=== PATIENT | male | born 1995 | race Caucasian/White ===

== ENCOUNTER 2021-06-10 23:29 | Emergency (ER) | payer OTHER ==
[~2021-06-10] VITALS: Ht 180.3 cm; Wt 151.9 kg
--- OUTSIDE RECORDS SUMMARY | 2021-06-10 23:34 | XMS ---
PreManage Notification: WAYNE TOLEDO Security Technical Maintenance Specialist Events No recent Security Events currently on file CRITERIA MET - PDMP - [facility] Care Guidelines CARE PROVIDERS KEVIN GRISSOM Physician Analytics Associate Current PHONE: [phone] JESE NUÑEZ Community Health Worker 04/03/2020-Current PHONE: [phone] Guidelines Source: [facility] Guidelines Date: 01/31/2021 Care Recommendation: Created On: 07/11/2016 14:05 Archived Care Plan: Board of Pharmacy Report: Date Referred: 10/01/2015 Dates investigated: 2013-11/09/2015 Total number of prescribing providers: 2 Total number of pharmacies:2 Total number of prescriptions:2 Plan of care: 1)No potentially addictive medications for subjective complaints. 2)SW and CM to complete a needs assessment. 3) CC all encounters to Franklin Lockhart. Progress notes: Pt was referred for a care plan due to chronic pain, frequent ED visits and 150 transcriptions in the [place] [employer] date exchange. Pt is seen by Dr. Lockhart for anti depressants and heart medications. Chantelle\T\apos;s office is aware of the Pt\T\apos;s visits to different ED\T\apos;s and urgent care. Pt has had 7 CT scans of the chest, abdomen, pelvis and head since December 2012. Additional care guidelines exist for the following facilities: [facility] ( 05/24/2019 ) Shital VISIT COUNT (12 MO.) [address] Kelechi PattersonToan TOTAL 6 NOTE: Visits indicate total known visits. ED/UCC VISIT TRACKING (12 MO.) 06/10/2021 23:30 [facility] [place] TYPE: Emergency COMPLAINT: - SOB,COUGH,CONGESTION,WEAKNESS 03/03/2021 23:[address] [facility] [place] TYPE: Emergency DIAGNOSES: - POST OP PROBLEM - Other acute postprocedural pain 11/08/2020 20:[address] [facility] [place] TYPE: Emergency DIAGNOSES: - ABD PAIN - Right upper quadrant pain 11/07/2020 [facility] COMPLAINT: - DIAHRREA, VOMITTING, ABD PAIN DIAGNOSES: - DIAHRREA, VOMITTING, ABD PAIN 11/03/2020 22:21 [facility] [place] TYPE: Emergency DIAGNOSES: - Calculus of bile duct without cholangitis or cholecystitis without obstruction - R FLANK PAIN AND VOMITING - Hyperglycemia, unspecified 07/01/2020 11:25 [facility] [place] TYPE: Emergency DIAGNOSES: - pelvic pain - Pain in right hip - Pain in left hip INPATIENT VISIT TRACKING (12 MO.) No inpatient visits to display in this time frame [id number]
[2021-06-10] MEDS ORDERED: METFORMIN HCL500 MG PO (23:48)
== END 2021-06-11 00:22 | disposition home or self-care (01) ==
LOC: ED 23:29
DX: J20.9 Acute bronchitis, unspecified (principal); Z20.822 Contact with and (suspected) exposure to COVID-19; E11.9 Type 2 diabetes mellitus without complications; E66.9 Obesity, unspecified; F17.200 Nicotine dependence, unspecified, uncomplicated; J45.909 Unspecified asthma, uncomplicated; Z79.84 Long term (current) use of oral hypoglycemic drugs
CPT/HCPCS: 71045; 99283-25; C9803; U0003

== ENCOUNTER 2023-02-25 20:08 | Emergency (ER) | payer OTHER ==
[~2023-02-25] VITALS: Ht 180.3 cm; Wt 132.4 kg
[~2023-02-25 20:08] MED LIST: METFORMIN HCL500 MG PO
--- OUTSIDE RECORDS SUMMARY | 2023-02-25 20:10 | XMS ---
PreManage Notification: WAYNE TOLEDO Security Hvac Mechanic Events No recent Security Events currently on file CRITERIA MET - [facility] - 2 Visits in 30 Days CARE PROVIDERS -Сергей- Dentist: Grain Cleaner And Transfer Operator [facility] PHONE: [phone] JESE NUÑEZ Community Health Worker 04/03/2020-Current PHONE: [phone] JESUS MANUEL BENNETT Physician Chief Dog License Inspector Current PHONE: Unknown Care Guidelines exist for the following facilities: [facility] ( 05/24/2019 ) Shital VISIT COUNT (12 MO.) 9 [facility] 1 MICK Almaguer TOTAL 10 NOTE: Visits indicate total known visits. ED/UCC VISIT TRACKING (12 MO.) 02/25/2023 20:09 [facility] [place] TYPE: Emergency COMPLAINT: - MIGRAINE 02/21/2023 16:36 [email or web address] [place] TYPE: Emergency DIAGNOSES: - LEFT WRIST PAIN - Unspecified sprain of left wrist, initial encounter 10/30/2022 14:54 [facility] [place] TYPE: Emergency DIAGNOSES: - POSS SYNCOPE - Syncope and collapse 10/08/2022 16:05 [facility] [place] TYPE: Emergency DIAGNOSES: - FLU LIKE SYMPTOMS - Influenza due to other identified influenza virus with other respiratory manifestations 08/01/2022 13:39 [facility] [place] TYPE: Emergency DIAGNOSES: - Nausea with vomiting, unspecified - abd pain - Diarrhea, unspecified 07/16/2022 13:29 [facility] [place] TYPE: Emergency DIAGNOSES: - Pain in right knee - wound check 07/13/2022 19:43 [facility] [place] TYPE: Emergency DIAGNOSES: - LEG INJURY - Contusion of right lower leg, initial encounter 06/06/2022 21:13 [facility] DIAGNOSES: - ABDOMINAL PAIN BLOOD IN [place] - Periumbilical pain 05/29/2022 20:50 [facility] [place] TYPE: Emergency DIAGNOSES: - COVID-19 - fever 03/26/2022 13:20 [facility] [place] TYPE: Emergency DIAGNOSES: - CHEST PAIN DIZZINESS - Chest pain, unspecified INPATIENT VISIT TRACKING (12 MO.) No inpatient visits to display in this time frame [email or web address]
[2023-02-25] MEDS ORDERED: TOPIRAMATE50 MG PO (20:53)
[2023-02-25] MEDS ORDERED: RIZATRIPTAN10 MG PO (20:53)
[2023-02-25] MEDS ORDERED: OMEPRAZOLE20 MG PO (20:54)
[2023-02-25] MEDS ORDERED: HYDROCHLOROTH12.5 MG PO (20:54)
[2023-02-25] MEDS ORDERED: JARDIANCE10 MG PO (20:54)
[2023-02-25] MEDS ORDERED: VENTOLIN HFA18 GM INH (20:55)
[2023-02-25] MEDS ORDERED: BUTALB-ACETAMI1 EAC2 PO (22:22)
== END 2023-02-25 23:20 | disposition home or self-care (01) ==
LOC: ED 20:08
DX: G43.909 Migraine, unspecified, not intractable, without status migrainosus (principal); J45.909 Unspecified asthma, uncomplicated; E11.9 Type 2 diabetes mellitus without complications; F17.200 Nicotine dependence, unspecified, uncomplicated; E66.9 Obesity, unspecified; Z68.41 Body mass index [BMI] 40.0-44.9, adult; Z79.899 Other long term (current) drug therapy
CPT/HCPCS: J1200; J1885; J2765; J3030; J7121

== ENCOUNTER 2023-08-25 00:05 | Emergency (ER) | payer OTHER ==
[~2023-08-25] VITALS: Ht 180.3 cm; Wt 128.0 kg
--- OUTSIDE RECORDS SUMMARY | ~2023-08-25 | XMS | Continuity of Care Document ---
Demographics + + + | Address | [address] | | | [place] [address] | + + + | Preferred Language | Unknown | + + + | Marital Status | | + + + | Gnosticist Affiliation | Unknown | + + + | Race | White | + + + | Ethnic Group | Unknown | + + + Author + + + | Author | [facility] | + + + | Organization | [facility] | + + + | Address | [address] | | | [place] [address] | + + + | Phone | | + + + Care Team Providers + + + + | Care Chronic Manager Name | Role | Phone | + + + + Unavailable | Unavailable | + + + + Allergies No information. Encounters No information. Functional Status No information. Immunizations No information. Medications No information. Problems + + + + | date | description | facility | + + + + | 2023-06-05 13:05:56 | Chronic migraine without | [facility] | | | aura, intractable, without [facility] | | | status migrainosus | | + + + + | 2023-06-05 13:05:56 | Concussion without loss of | [facility] | | | consciousness, initial | [facility] | | | encounter | | + + + + | 2023-07-17 14:06:32 | Chronic migraine without | [facility] | | | aura, intractable, without | [facility] | | | status migrainosus | | + + + + | 2023-08-07 13:02:26 | Chronic migraine without | [facility] | | | aura, intractable, without | [facility] | | | status migrainosus | | + + + + | 2023-08-07 13:02:26 | Chronic tension-type | [facility] | | | headache, intractable | [facility] | + + + + Procedures No information. Results/Labs No information. Social History +--------+ + + | date | description | facility | +--------+ + + Vital Signs No information."
[~2023-08-25 00:05] MED LIST changes: +BUTALB-ACETAMI1 EAC2 PO; +HYDROCHLOROTH12.5 MG PO; +JARDIANCE10 MG PO; +OMEPRAZOLE20 MG PO; +RIZATRIPTAN10 MG PO; +TOPIRAMATE50 MG PO; +VENTOLIN HFA18 GM INH
--- OUTSIDE RECORDS SUMMARY | 2023-08-25 00:08 | XMS ---
PreManage Notification: WAYNE TOLEDO Security Art Librarian Events No recent Security Events currently on file CRITERIA MET - PDM - [facility] - 2 Visits in 30 Days CARE PROVIDERS JESE NUÑEZ Community Health Worker 04/03/2020-Current PHONE: [phone] -, Сергей- Dentist: Software Sales Manager Current [facility] PHONE: [phone] JESUS MANUEL BENNETT Physician Preventive Medicine Specialist Current PHONE: Unknown Care Guidelines exist for the following facilities: [facility] ( 01/31/2021 ) [facility] ( 05/24/2019 ) Shital VISIT COUNT (12 MO.) 5 [facility] [address] [facility] [address] Kelechi Reyes TOTAL 7 NOTE: Visits indicate total known visits. ED/UCC VISIT TRACKING (12 MO.) 08/25/2023 00:06 [facility] [place] TYPE: Emergency COMPLAINT: - ABDOMINAL PAIN 08/02/2023 11:56 [facility] [place] TYPE: Emergency DIAGNOSES: - Infectious gastroenteritis and colitis, unspecified - Type 2 diabetes mellitus with hyperglycemia - SEVERE ABD PAIN RIGHT SIDE NAUSEA DIARRHEA 05/08/2023 13:02 [facility] [place] TYPE: Emergency DIAGNOSES: - Acute upper respiratory infection, unspecified - Panic disorder [episodic paroxysmal anxiety] - CHEST PAIN DIFFICULTY BREATHING 02/25/2023 20:09 [facility] [place] TYPE: Emergency COMPLAINT: - MIGRAINE DIAGNOSES: - Body mass index [BMI] 40.0-44.9, adult - Migraine, unspecified, not intractable, without status migrainosus - Nicotine dependence, unspecified, uncomplicated - Obesity, unspecified - Other termite control service representative (current) drug therapy - Type 2 diabetes mellitus without complications - Unspecified asthma, uncomplicated 02/21/2023 16:36 [facility] [place] TYPE: Emergency DIAGNOSES: - Unspecified sprain of left wrist, initial encounter - LEFT WRIST PAIN 10/30/2022 14:54 [facility] [place] TYPE: Emergency DIAGNOSES: - Syncope and collapse - POSS SYNCOPE 10/08/2022 16:05 [facility] [place] TYPE: Emergency DIAGNOSES: - Influenza due to other identified influenza virus with other respiratory manifestations - FLU LIKE SYMPTOMS INPATIENT VISIT TRACKING (12 MO.) No inpatient visits to display in this time frame [id number]
[2023-08-25] MEDS ORDERED: UBRELVY50 MG PO (00:19)
[2023-08-25 00:39] LABS: BASOPHILS 0.9 % (0-2); EOSINOPHILS 2.4 % (0-6); HEMATOCRIT 49.4 % (35.0-50.0); HEMOGLOBIN 16.8 g/dL (12.0-18.0); LYMPHOCYTES 25.3 % (24-44); MCH 30.4 (27-36); MCHC 34.1 g/dl (30-36); MCV 89.1 fl (81-99); MONOCYTES 6.9 % (0-12); NEUTROPHILS 64.5 % (39-80); PLATELET COUNT 258 K/uL (140-440); RBC 5.54 M/ul (4.3-5.7); RDW 13.8 (10.5-15.0)
[2023-08-25 01:01] LABS: ALBUMIN 3.7 g/dL (3.4-5.0); ALBUMIN/GLOBULIN RATIO 0.95 (1.1-2.4); ANION GAP 17.5 (7-21); BILIRUBIN, TOTAL 0.2 ng/dL (0.2-1.0); CALCIUM 9.2 mg/dL (8.5-10.1); CREATININE, SERUM 1.23 mg/dL (0.70-1.30); POTASSIUM 3.5 mmol/L (3.5-5.1); PROTEIN, TOTAL 7.6 g/dL (6.4-8.2)
[2023-08-25 01:28] LABS: BILIRUBIN, URINE NEGATIVE (negative); BLOOD/HGB, URINE NEGATIVE (Negative); KETONE, URINE TRACE (Negative); LEUK ESTERASE, URINE NEGATIVE (negative); NITRITE, URINE NEGATIVE (negative)
[2023-08-25] MEDS ORDERED: QUESTRAN PACKET4 GM PO (01:45)
[2023-08-25] MEDS ORDERED: ANUSOL-HC30 GM PR (01:45)
[2023-08-25] MEDS ORDERED: ONDANSETRON ODT8 MG PO (01:45)
[2023-08-25] MEDS ORDERED: TRAMADOL HCL50 MG PO (01:45)
[2023-08-25] MEDS ORDERED: VANCOCIN HCL125 MG PO (01:45)
[2023-08-25 02:16] VITALS: BP 138/94
[2023-08-28 02:38] LABS: C. DIFF TOXIN B GENE TCDB,PCR Not Detected (())
== END 2023-08-25 02:15 | disposition home or self-care (01) ==
LOC: ED 00:05
PROVIDERS: Family Medicine
DX: K52.9 Noninfective gastroenteritis and colitis, unspecified (principal); J45.909 Unspecified asthma, uncomplicated; E11.9 Type 2 diabetes mellitus without complications; F17.200 Nicotine dependence, unspecified, uncomplicated; E66.9 Obesity, unspecified; Z68.39 Body mass index [BMI] 39.0-39.9, adult; Z79.899 Other long term (current) drug therapy
CPT/HCPCS: 36415; 80053; 81003; 83690; 85025; 87045; 87046; 87493; 96374; 96375; 96376; 99284-25; A9270; J2270; J2405; J7030

== ENCOUNTER 2024-06-18 00:45 | Emergency (ER) | payer OTHER ==
[~2024-06-18] VITALS: Ht 180.3 cm; Wt 121.2 kg
[~2024-06-18 00:45] MED LIST changes: +ANUSOL-HC30 GM PR; +ONDANSETRON ODT8 MG PO; +QUESTRAN PACKET4 GM PO; +TRAMADOL HCL50 MG PO; +UBRELVY50 MG PO; +VANCOCIN HCL125 MG PO
--- OUTSIDE RECORDS SUMMARY | 2024-06-18 00:47 | XMS ---
PreManage Notification: WAYNE TOLEDO Security Barrel Charrer Helper Events No recent Security Events currently on file CRITERIA MET - 6 ED Visits in 6 Months - [facility] - [facility] - 2 Visits in 30 Days CARE PROVIDERS Marva Hearn Community Health Worker 12/08/2023-Current PHONE: [phone] -[facility]+ Dentist: Pneumatic Tube Repairer [facility] PHONE: [phone] -Сергей- Dentist: Pneumatic Tube Repairer [facility] PHONE: [phone] JESUS MANUEL BENNETT Physician Setter Automatic Spinning Lathe Current PHONE: Unknown [facility]: [facility] Current WORKERS CLINIC \[facility] (FQ) [facility] PHONE: [phone] Care Guidelines exist for the following facilities: [facility] ( 01/31/2021 ) [employer] ( 04/28/2017 ) Shital VISIT COUNT (12 MO.) 11 [facility] 2 M[facility] Almag[facility] TOTAL 13 NOTE: Visits indicate total known visits. ED/UCC VISIT TRACKING (12 MO.) 06/18/2024 00:46 [facility] [place] TYPE: Emergency COMPLAINT: - ABD PAIN 06/16/2024 21:00 [facility] Emergency DIAGNOSES: - Pain in right knee - KNEE INJURY 06/15/2024 11:27 [facility] [place] TYPE: Emergency DIAGNOSES: - Nausea with vomiting, unspecified - ABD PAIN DIARRHEA 04/11/2024 19:19 [facility] [place] TYPE: Emergency DIAGNOSES: - Other lesions of oral mucosa - allergic reaction 03/26/2024 16:29 [facility] [place] TYPE: Emergency DIAGNOSES: - Lumbago with sciatica, right side - Other chronic pain - Other intervertebral disc displacement, lumbar region - Radiculopathy, thoracolumbar region - BACK PAIN 02/16/2024 16:29 [facility] [place] TYPE: Emergency DIAGNOSES: - Low back pain, unspecified - BACK INJURY 02/02/2024 20:46 [facility] [place] TYPE: Emergency DIAGNOSES: - Rash and other nonspecific skin eruption - ALLERGIC REACTION 01/26/2024 02:00 [facility] [place] TYPE: Emergency DIAGNOSES: - Radiculopathy, lumbar region - BACK PAIN 01/18/2024 10:13 [facility] [place] TYPE: Emergency DIAGNOSES: - Radiculopathy, lumbar region - Strain of muscle, fascia and tendon of lower back, initial encounter - BACK PAIN - BACK PAIN WEAKNESS 12/03/2023 21:06 [facility] DIAGNOSES: - Acute pharyngitis, unspecified - Sore Throat, Bodyaches 10/29/2023 17:40 [facility] [place] TYPE: Emergency DIAGNOSES: - Chest pain, unspecified - Other chest pain - chest pain 08/25/2023 00:06 [facility] [place] TYPE: Emergency COMPLAINT: - ABDOMINAL PAIN DIAGNOSES: - Body mass index [BMI] 39.0-39.9, adult - Lower abdominal pain, unspecified - Nicotine dependence, unspecified, uncomplicated - Noninfective gastroenteritis and colitis, unspecified - Obesity, unspecified - Other long-term (current) drug therapy - Type 2 diabetes mellitus without complications - Unspecified asthma, uncomplicated 08/02/2023 11:56 [facility] [place] TYPE: Emergency DIAGNOSES: - Infectious gastroenteritis and colitis, unspecified - Type 2 diabetes mellitus with hyperglycemia - SEVERE ABD PAIN RIGHT SIDE NAUSEA DIARRHEA INPATIENT VISIT TRACKING (12 MO.) No inpatient visits to display in this time frame [email or web address]
[2024-06-18] MEDS ORDERED: KETOROLAC TROMETHAMINE 30 MG/ML VIAL IV ONE (01:00)
[2024-06-18] MEDS ORDERED: SODIUM CHLORIDE 0.9% 1,000 ML IV ONE (01:00)
[2024-06-18] MEDS ORDERED: DIPHENOXYLATE/ATROPINE 1 EA TAB PO ONE (01:00)
[2024-06-18] MEDS ORDERED: ondansetron HCL 4 MG/2 ML VIAL IV ONE (01:00)
[2024-06-18 01:08] LABS: BASOPHILS 0.3 % (0-2); EOSINOPHILS 4.2 % (0-6); HEMATOCRIT 46.5 % (35.0-50.0); HEMOGLOBIN 16.2 g/dL (12.0-18.0); LYMPHOCYTES 24.8 % (24-44); MCH 30.9 (27-36); MCHC 34.8 g/dl (30-36); MCV 88.8 fl (81-99); NEUTROPHILS 64.7 % (39-80); PLATELET COUNT 224 K/uL (140-440); RBC 5.23 M/ul (4.3-5.7); RDW 13.9 (10.5-15.0)
[2024-06-18] MEDS ORDERED: TRULICITY0.75 MG/0. SUB-Q (01:09)
[2024-06-18] MEDS ORDERED: PRAZOSIN HCL2 MG PO (01:10)
[2024-06-18 01:23] LABS: ALBUMIN 3.7 g/dL (3.4-5.0); ALBUMIN/GLOBULIN RATIO 1.03 (1.1-2.4); ANION GAP 14.4 (7-21); BILIRUBIN, TOTAL 0.2 ng/dL (0.2-1.0); BUN/CREATININE RATIO 18.01 (6.0-28.6); CREATININE, SERUM 1.11 mg/dL (0.70-1.30); POTASSIUM 3.4 mmol/L (3.5-5.1); PROTEIN, TOTAL 7.3 g/dL (6.4-8.2)
[2024-06-18 01:28] LABS: BILIRUBIN, URINE NEGATIVE (negative); BLOOD/HGB, URINE NEGATIVE (Negative); KETONE, URINE NEGATIVE (Negative); LEUK ESTERASE, URINE NEGATIVE (negative); NITRITE, URINE NEGATIVE (negative)
[2024-06-18] MEDS ORDERED: ONDANSETRON ODT8 MG PO (01:36)
[2024-06-18] MEDS ORDERED: DICYCLOMINE HCL10 MG PO (01:36)
[2024-06-18] MEDS ORDERED: LOMOTIL TABLET1 EACH PO (01:36)
[2024-06-18] MEDS ORDERED: DICYCLOMINE HCL 10 MG HOME.PACK PO ONE (01:45)
[2024-06-18] MEDS ORDERED: ONDANSETRON 4 MG HOME.PACK SL ONE (01:45)
[2024-06-18 01:58] VITALS: BP 122/85
== END 2024-06-18 01:55 | disposition home or self-care (01) ==
LOC: ED 00:45
PROVIDERS: Family Medicine
DX: A05.9 Bacterial foodborne intoxication, unspecified (principal); E11.9 Type 2 diabetes mellitus without complications; I10 Essential (primary) hypertension; E66.9 Obesity, unspecified; F17.200 Nicotine dependence, unspecified, uncomplicated; Z79.899 Other long term (current) drug therapy
CPT/HCPCS: 36415; 80053; 81003; 83690; 83735; 85025; 96361; 96374; 96375; 99284-25; A9270; J1885; J2405; J7030

== ENCOUNTER 2024-07-14 22:27 | Emergency (ER) | payer OTHER ==
[~2024-07-14] VITALS: Ht 177.8 cm; Wt 122.0 kg
[~2024-07-14 22:27] MED LIST changes: +DICYCLOMINE HCL10 MG PO; +LOMOTIL TABLET1 EACH PO; +PRAZOSIN HCL2 MG PO; +TRULICITY0.75 MG/0. SUB-Q
--- OUTSIDE RECORDS SUMMARY | 2024-07-14 22:29 | XMS ---
PreManage Notification: WAYNE TOLEDO Security Research Contracts Supervisor Events No recent Security Events currently on file CRITERIA MET - 6 ED Visits in 6 Months - [facility] - 2 Visits in 30 Days CARE PROVIDERS Marva Hearn Community Health Worker 12/08/2023-Current PHONE: [phone] -[facility]+ Dentist: Tar Heater Operator Mayda Rushing PHONE: [phone] -Сергей- Dentist: Tar Heater Operator [facility] PHONE: [phone] JESUS MANUEL BENNETT Physician Harvesting Supervisor Current PHONE: Unknown [facility] PHONE: [phone] Care Guidelines exist for the following facilities: [facility] ( 01/31/2021 ) [employer] ( 04/28/2017 ) Shital VISIT COUNT (12 MO.) 11 [facility] [facility] 3 MICK Almaguer TOTAL 14 NOTE: Visits indicate total known visits. ED/UCC VISIT TRACKING (12 MO.) 07/14/2024 22:28 [facility] [place] TYPE: Emergency COMPLAINT: - COLD SYMPTOMS 06/18/2024 00:46 [facility] [place] TYPE: Emergency COMPLAINT: - ABD PAIN DIAGNOSES: - Bacterial foodborne intoxication, unspecified - Essential (primary) hypertension - Left lower quadrant pain - Nicotine dependence, unspecified, uncomplicated - Obesity, unspecified - Other oil heaterman (current) drug therapy - Type 2 diabetes mellitus without complications 06/16/2024 21:00 [facility] [place] TYPE: Emergency DIAGNOSES: - Pain in right knee - KNEE INJURY 06/15/2024 11:27 [employer] [place] TYPE: Emergency DIAGNOSES: - Nausea with vomiting, unspecified - ABD PAIN DIARRHEA 04/11/2024 19:19 [employer] [place] TYPE: Emergency DIAGNOSES: - Other lesions of oral mucosa - allergic reaction 03/26/2024 16:29 [employer] [place] TYPE: Emergency DIAGNOSES: - Lumbago with sciatica, right side - Other chronic pain - Other intervertebral disc displacement, lumbar region - Radiculopathy, thoracolumbar region - BACK PAIN 02/16/2024 16:29 [employer] [place] TYPE: Emergency DIAGNOSES: - Low back pain, unspecified - BACK INJURY 02/02/2024 20:46 [employer] [place] TYPE: Emergency DIAGNOSES: - Rash and other nonspecific skin eruption - ALLERGIC REACTION 01/26/2024 02:00 [employer] [place] TYPE: Emergency DIAGNOSES: - Radiculopathy, lumbar region - BACK PAIN 01/18/2024 10:13 [employer] [place] TYPE: Emergency DIAGNOSES: - Radiculopathy, lumbar region - Strain of muscle, fascia and tendon of lower back, initial encounter - BACK PAIN - BACK PAIN WEAKNESS 12/03/2023 21:06 [employer] [place] TYPE: Emergency DIAGNOSES: - Acute pharyngitis, unspecified - Sore Throat, Bodyaches 10/29/2023 17:40 [facility] [place] TYPE: Emergency DIAGNOSES: - Chest pain, unspecified - Other chest pain - chest pain 08/25/2023 00:06 [facility] [place] TYPE: Emergency COMPLAINT: - ABDOMINAL PAIN DIAGNOSES: - Body mass index [BMI] 39.0-39.9, adult - Lower abdominal pain, unspecified - Nicotine dependence, unspecified, uncomplicated - Noninfective gastroenteritis and colitis, unspecified - Obesity, unspecified - Other senior living (current) drug therapy - Type 2 diabetes mellitus without complications - Unspecified asthma, uncomplicated 08/02/2023 11:56 [facility] [place] TYPE: Emergency DIAGNOSES: - Infectious gastroenteritis and colitis, unspecified - Type 2 diabetes mellitus with hyperglycemia - SEVERE ABD PAIN RIGHT SIDE NAUSEA DIARRHEA INPATIENT VISIT TRACKING (12 MO.) No inpatient visits to display in this time frame [id number]
[2024-07-14] MEDS ORDERED: NURTEC ODT75 MG PO (22:46)
[2024-07-14] MEDS ORDERED: PRAMIPEXOLE D0.25 MG PO (22:46)
[2024-07-14] MEDS ORDERED: EPIN0.3P IM (22:46)
[2024-07-14] MEDS ORDERED: KETOROLAC TROMETHAMINE 30 MG/ML VIAL IV ONE (23:00)
[2024-07-14] MEDS ORDERED: CEFTRIAXONE/SODIUM CHLORIDE 2 GM/100 ML PIGGYBACK IV ONE (23:00)
[2024-07-14 23:27] LABS: ALBUMIN 3.5 g/dL (3.4-5.0); ALBUMIN/GLOBULIN RATIO 1.03 (1.1-2.4); ANION GAP 15.2 (7-21); BILIRUBIN, TOTAL 0.3 ng/dL (0.2-1.0); BUN/CREATININE RATIO 10.47 (6.0-28.6); CALCIUM 8.8 mg/dL (8.5-10.1); CREATININE, SERUM 1.05 mg/dL (0.70-1.30); POTASSIUM 3.2 mmol/L (3.5-5.1); PROTEIN, TOTAL 6.9 g/dL (6.4-8.2)
[2024-07-14] MEDS ORDERED: LACTATED RINGER'S 1,000 ML IV ONE (23:30)
[2024-07-14 23:37] LABS: LACTIC ACID, BLOOD 0.8 mmol/L (0.4-2.0)
[2024-07-14 23:39] LABS: HEMOGLOBIN 14.5 g/dL (12.0-18.0)
[2024-07-14 23:41] LABS: BASOPHILS 0.4 % (0-2); EOSINOPHILS 2.9 % (0-6); HEMATOCRIT 42.3 % (35.0-50.0); LYMPHOCYTES 6.7 % (24-44); MCH 30.7 (27-36); MCHC 34.2 g/dl (30-36); MCV 89.7 fl (81-99); MONOCYTES 7.3 % (0-12); NEUTROPHILS 82.7 % (39-80); PLATELET COUNT 176 K/uL (140-440); RBC 4.71 M/ul (4.3-5.7); RDW 14.4 (10.5-15.0)
[2024-07-14 23:44] LABS: BILIRUBIN, URINE NEGATIVE (negative); BLOOD/HGB, URINE NEGATIVE (Negative); KETONE, URINE TRACE (Negative); LEUK ESTERASE, URINE NEGATIVE (negative); NITRITE, URINE NEGATIVE (negative); PH, URINE 7.5 (5-7)
[2024-07-14] MEDS ORDERED: SODIUM CHLORIDE 0.9% 1,000 ML IV PRN (23:45)
[2024-07-14 23:46] LABS: INFLUENZA B NAA NEGATIVE (NEGATIVE); RESPIRATORY SYNCYTIAL VIR NAA NEGATIVE (NEGATIVE)
[2024-07-14] MEDS ORDERED: PAXLOVID 300-11 EAC1 PO (23:52)
[2024-07-15] MEDS ORDERED: MORPHINE SULFATE 4 MG/ML VIAL IV ONE (00:15)
[2024-07-15 00:46] VITALS: BP 125/85
--- NOTE | 2024-07-15 21:38 | EKG ---
[facility] [address] [place] [address] Signed Sinus tachycardia Inferior infarct , age undetermined Abnormal ECG No previous ECGs available Confirmed by Mayte Herrera MD () on 07/15/2024 9:37:54 PM Electronically Signed By: MAYTE HERRERA MD 07/15/242137 PATIENT NAME: WAYNE TOLEDO Electrocardiogram DATE OF : [birth year] PHYSICIAN: MAYTE HERRERA MD REPORT #: [id number] REPORT IS CONFIDENTIAL AND NOT TO BE RELEASED WITHOUT AUTHORIZATION
== END 2024-07-15 00:40 | disposition home or self-care (01) ==
LOC: ED 22:27
PROVIDERS: Internal Medicine
DX: U07.1 COVID-19 (principal); E87.6 Hypokalemia; J45.909 Unspecified asthma, uncomplicated; E11.9 Type 2 diabetes mellitus without complications; G43.909 Migraine, unspecified, not intractable, without status migrainosus; I10 Essential (primary) hypertension; F43.10 Post-traumatic stress disorder, unspecified; F41.9 Anxiety disorder, unspecified; F32.A Depression, unspecified; E66.9 Obesity, unspecified; F17.200 Nicotine dependence, unspecified, uncomplicated; Z79.899 Other long term (current) drug therapy
CPT/HCPCS: 36415; 71045; 80053; 81003; 83605; 85025; 87040; 87502; 93005; 93010; 96365; 96375; 99283-25; J0696; J1885; J2270; J7030; U0002